=== PATIENT | female | born 1925 | race Caucasian/White ===

== ENCOUNTER 2016-07-04 10:39 | Emergency (ER) | payer MEDICARE, OTHER ==
[~2016-07-04 10:39] MED LIST: ALENDRONATE SOD70 MG PO; ARICEPT10 MG PO; ASPIRIN CHEWABL81 MG PO; AUGMENTIN 875-1 EACH PO; CARDIZEM60 MG PO; ELIQUIS5 MG PO; FOSAMAX70 MG PO; LIPITOR TAB 2020 MG PO; LOPRESSOR 50 MG50 MG PO; MIRALAX17 GM PO; NEURONTIN 300300 MG PO; NORVASC2.5 MG PO; PLAVIX 75 MG TA75 MG PO; SYNTHROID75 MCG PO
[2016-07-04 11:38] LABS: HEMOGLOBIN 14.9 gm/dl (12.3-15.3); RED BLOOD COUNT 5.02 M/UL (4.00-5.10); WHITE BLOOD COUNT 4.2 K/UL (4.5-11.0)
[2016-07-04 12:03] LABS: BUN/CREATININE RATIO 16 (0-10)
== END 2016-07-04 15:12 | disposition home or self-care (01) ==
LOC: ER1 10:39
PROVIDERS: Emergency Medicine
DX: J11.1 Influenza due to unidentified influenza virus with other respiratory manifestations (principal); E87.1 Hypo-osmolality and hyponatremia
CPT/HCPCS: 36415; 71010; 80053; 81001; 83605; 84484; 85025; 93005; 99284